=== PATIENT | male | born 1945 | race Hispanic/Latino ===

== ENCOUNTER → 2019-10-11 | Outpatient (CLI) | payer OTHER, MEDICARE | END | disposition home or self-care (01) | LOC: SLP 20:31 | PROVIDERS: ATTEND Family Medicine | DX: G47.33 Obstructive sleep apnea (adult) (pediatric) (principal) | CPT/HCPCS: 95810 ==

== ENCOUNTER → 2019-10-25 | Outpatient (CLI) | payer OTHER, MEDICARE | END | disposition home or self-care (01) | LOC: SLP 20:31 | PROVIDERS: ATTEND Family Medicine | DX: G47.33 Obstructive sleep apnea (adult) (pediatric) (principal) | CPT/HCPCS: 95811 ==

== ENCOUNTER 2023-09-16 06:22 | Day surgery (SDC) | payer OTHER, MEDICARE ==
[2023-09-16] VITALS (12 sets, daily range): BP systolic 94–145; BP diastolic 53–69; PULSE 54–59; RESP 14–19
[~2023-09-16] VITALS: Ht 170.2 cm; Wt 72.1 kg
[~2023-09-16 06:22] MED LIST: AEC81 PO; AMLO-257 PO; CHOL100046 PO; FINA5TAB41 PO; SIMV-46 PO; TAMS-1 PO
[2023-09-16] MEDS: 0.9%NACL 1000ML 1,000 ML IV ONE (07:05)
[2023-09-16] MEDS ORDERED: PROPOFOL 10 MG/ML 20ML VIAL IV ONE (08:47)
[2023-09-16] MEDS ORDERED: LIDOCAINE HCL 1% 20 ML VIAL ONE (08:47)
== END 2023-09-16 11:13 | disposition home or self-care (01) ==
LOC: DAH 06:22 → ENDO 06:22
PROVIDERS: ATTEND Internal Medicine Gastroenterology
DX: Z12.11 Encounter for screening for malignant neoplasm of colon (principal); K57.30 Diverticulosis of large intestine without perforation or abscess without bleeding; K63.89 Other specified diseases of intestine; K20.80 Other esophagitis without bleeding; K31.89 Other diseases of stomach and duodenum; I10 Essential (primary) hypertension; E78.2 Mixed hyperlipidemia; G47.30 Sleep apnea, unspecified; R12 Heartburn; K29.70 Gastritis, unspecified, without bleeding; Z80.0 Family history of malignant neoplasm of digestive organs; Z80.9 Family history of malignant neoplasm, unspecified; Z85.038 Personal history of other malignant neoplasm of large intestine; Z79.82 Long term (current) use of aspirin; Z79.899 Other long term (current) drug therapy; Z98.890 Other specified postprocedural states
CPT/HCPCS: 43239; J7030 ×2; J2704; A4620; G0105; A4215; A4223; A4657; A7002; A4222; A4221; A4663; A4606; 45378; G0121; J3490